=== PATIENT | female | born 1960 | race African-American/Black ===

== ENCOUNTER 2016-04-28 20:20 | Emergency (ER) | payer OTHER ==
[~2016-04-28] VITALS: Ht 162.6 cm; Wt 113.4 kg
[2016-04-28 22:54] VITALS: BP 151/62
[2016-04-28 23:03] LABS: BASOPHILS % (AUTO) 1.3 % (0.0-2.0); EOSINOPHILS % (AUTO) 1.8 % (0.0-3.0); LYMPHOCYTES % (AUTO) 39.5 % (20.0-45.0); MEAN CORPUSCULAR HEMOGLOBIN 25.8 PG (27.0-31.0); MEAN CORPUSCULAR HGB CONC 31.5 G/DL (32.0-36.0); MEAN CORPUSCULAR VOLUME 82 FL (80-99); MEAN PLATELET VOLUME 7.1 FL (6.5-10.1); MONOCYTES % (AUTO) 6.4 % (1.0-10.0); NEUTROPHILS % (AUTO) 50.9 % (45.0-75.0); PLATELET COUNT 273 K/UL (150-450); RED CELL DISTRIBUTION WIDTH 13.7 % (11.6-14.8); WHITE BLOOD COUNT 4.6 K/UL (4.8-10.8)
[2016-04-28 23:10] VITALS: BP 136/57
[2016-04-28 23:17] LABS: ALANINE AMINOTRANSFERASE 8 U/L (3-33); ALBUMIN/GLOBULIN RATIO 1.1 (1.0-2.7); ANION GAP 12 (5-15); ASPARTATE AMINO TRANSFERASE 12 U/L (5-40); CALCIUM 10.1 mg/dL (8.6-10.2); CARBON DIOXIDE 27 mEQ/L (20-30); CHLORIDE 101 mEQ/L (98-107); HEMOLYSIS 7; POTASSIUM 4.4 mEQ/L (3.4-4.9); SODIUM 140 mEQ/L (135-145); TOTAL PROTEIN 6.8 g/dL (6.6-8.7)
[2016-04-28 23:30] LABS: GLOMERULAR FILTRATION RATE > 60 mL/min (>60)
[2016-04-29 00:11] LABS: APPEARANCE,URINE CLEAR; KETONES,URINE NEGATIVE (NEGATIVE); LEUKOCYTE ESTERASE ,URINE NEGATIVE (NEGATIVE); NITRITE,URINE NEGATIVE (NEGATIVE); PH,URINE 7 (4.5-8.0); PROTEIN,URINE NEGATIVE (NEGATIVE); UROBILINOGEN,URINE NORMAL MG/DL (0.0-1.0)
[2016-04-29] MEDS ORDERED: DIPHENHYDRAMINE25 M1 ORAL (00:14)
[2016-04-29] MEDS ORDERED: AMLODIPINE BESY10 MG ORAL (00:14)
[2016-04-29] MEDS ORDERED: ZOFRAN4 M3 ORAL (00:14)
[2016-04-29] MEDS ORDERED: ALBUTEROL2.5 MG/3 M INH (00:14)
[2016-04-29] MEDS ORDERED: RANITIDINE HCL150 MG ORAL (00:14)
[2016-04-29] MEDS ORDERED: CLINDAMYCIN HC150 MG TOPIC (00:14)
[2016-04-29] MEDS ORDERED: KETOTIFEN FUMARA5 ML OP (00:14)
[2016-04-29] MEDS ORDERED: LUBRICANT EYE D10 ML OP (00:14)
[2016-04-29] MEDS ORDERED: CHLORTHALIDONE25 MG ORAL (00:14)
[2016-04-29] MEDS ORDERED: METHOCARBAMOL750 MG ORAL (00:14)
[2016-04-29] MEDS ORDERED: IBUPROFEN600 MG ORAL (00:14)
[2016-04-29] MEDS ORDERED: LISINOPRIL40 MG ORAL (00:14)
[2016-04-29] MEDS ORDERED: SPIRONOLACTONE1 EACH ORAL (00:14)
[2016-04-29] MEDS ORDERED: FLUOXETINE HCL10 MG ORAL (00:14)
[2016-04-29 01:07] VITALS: BP 144/44
[2016-04-29 02:56] VITALS: BP 130/49
--- NOTE | 2016-04-29 03:31 | Emergency Room Report ---
History of Present Illness General Chief Complaint: Dizziness Source: Patient Present Illness HPI Patient presents with complaints of significant dizziness lightheadedness Patient reports in December she was seen by her primary placed on meclizine Today she had increased symptoms of dizziness especially with standing or turning Presents to the ER Denies any other change in medication denies any fevers or chills She's had a partial thyroid removal When she was 17 Denies any other vomiting or diarrhea denies any fevers or chills Patient also had a mild headache Allergies: Coded Allergies: ERYTHROMYCIN BASE (Verified Allergy, Unknown, 04/28/16) INFLUENZA VIRUS VACCINES (Verified Allergy, Unknown, 04/28/16) PENICILLINS (Verified Allergy, Unknown, 04/28/16) Patient History Past Medical History: see triage record Pertinent Family History: none : 2 Para: 1 Reviewed Nursing Documentation: PMH: Agreed, PSxH: Agreed Nursing Documentation-PMH Hx Hypertension: Yes Hx Asthma: Yes Review of Systems All Other Systems: negative except mentioned in HPI Physical Exam Vital Signs Date Time Temp Pulse Resp B/P Pulse Ox O2 Delivery O2 Flow Rate FiO2 04/28/16 21:07 98.1 48 16 138/78 99 Room Air Sp02 EP Interpretation: reviewed, normal General Appearance: well appearing, no apparent distress Head: normocephalic, atraumatic Eyes: bilateral eye EOMI, bilateral eye PERRL ENT: hearing grossly normal, normal pharynx, TMs + canals normal, uvula midline Neck: full range of motion, supple, no meningismus, no bony tend Respiratory: lungs clear, normal breath sounds, no rhonchi, no respiratory distress, no retraction, no accessory muscle use Cardiovascular #1: normal peripheral pulses, no edema, no gallop, no JVD, no murmur, bradycardia Gastrointestinal: normal bowel sounds, non tender, soft, no mass, no organomegaly, non-distended, no guarding, no hernia, no pulsatile mass, no rebound Genitourinary: no CVA tenderness Musculoskeletal: normal inspection Neurologic: oriented x3, responsive, 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, motor strength/ tone normal, sensory intact Psychiatric: mood/affect normal Skin: normal color, no rash, warm/dry, palpation normal Lymphatic: normal inspection, no adenopathy Medical Decision Making Diagnostic Impression: Primary Impression: Symptomatic bradycardia ER Course Patient is a fairly complex patient with multiple differential to consideration including but not limited to cardiac cardiopulmonary and vascular emergencies Patient's found to be significantly bradycardic Had a heart rate in the 40s This is concerning given the patient's symptomatic presentation Patient is on antihypertensive medications does not appear to be on any beta blockers Patient secondary to insurance purposes is being set for transfer And requires further inpatient care Labs Test 04/28/16 22:50 04/28/16 23:40 White Blood Count 4.6 K/UL (4.8-10.8) Red Blood Count 5.30 M/UL (4.20-5.40) Hemoglobin 13.7 G/DL (12.0-16.0) Hematocrit 43.4 % (37.0-47.0) Mean Corpuscular Volume 82 FL (80-99) Mean Corpuscular Hemoglobin 25.8 PG (27.0-31.0) Mean Corpuscular Hemoglobin Concent 31.5 G/DL (32.0-36.0) Red Cell Distribution Width 13.7 % (11.6-14.8) Platelet Count 273 K/UL (150-450) Mean Platelet Volume 7.1 FL (6.5-10.1) Neutrophils (%) (Auto) 50.9 % (45.0-75.0) Lymphocytes (%) (Auto) 39.5 % (20.0-45.0) Monocytes (%) (Auto) 6.4 % (1.0-10.0) Eosinophils (%) (Auto) 1.8 % (0.0-3.0) Basophils (%) (Auto) 1.3 % (0.0-2.0) Sodium Level 140 mEQ/L (135-145) Potassium Level 4.4 mEQ/L (3.4-4.9) Chloride Level 101 mEQ/L (98-107) Carbon Dioxide Level 27 mEQ/L (20-30) Anion Gap 12 (5-15) Blood Urea Nitrogen 17 mg/dL (7-23) Creatinine 1.0 mg/dL (0.5-0.9) Estimat Glomerular Filtration Rate > 60 mL/min (>60) Glucose Level 100 mg/dL (74-106) Calcium Level 10.1 mg/dL (8.6-10.2) Total Bilirubin 0.4 mg/dL (0.0-1.2) Aspartate Amino Transf (AST/SGOT) 12 U/L (5-40) Alanine Aminotransferase (ALT/SGPT) 8 U/L (3-33) Alkaline Phosphatase 84 U/L (35-104) Total Protein 6.8 g/dL (6.6-8.7) Albumin 3.7 g/dL (3.5-5.2) Globulin 3.1 g/dL Albumin/Globulin Ratio 1.1 (1.0-2.7) Urine Color Pale yellow Urine Appearance Clear Urine pH 7 (4.5-8.0) Urine Specific Clemons 1.010 (1.005-1.035) Urine Protein Negative (NEGATIVE) Urine Glucose (UA) Negative (NEGATIVE) Urine Ketones Negative (NEGATIVE) Urine Occult Blood Negative (NEGATIVE) Urine Nitrite Negative (NEGATIVE) Urine Bilirubin Negative (NEGATIVE) Urine Urobilinogen Normal MG/DL (0.0-1.0) Urine Leukocyte Esterase Negative (NEGATIVE) EKG Diagnostic Results Rate: bradycardiac Rhythm: NSR ST Segments: no acute changes Rhythm Strip Diag. Results EP Interpretation: yes Rate: 45 Rhythm: no PVC's, no ectopy, other - Sinus bradycardia Chest X-Ray Diagnostic Results EP Interpretation: Yes Findings: no consolidation, no effusion, no pneumothorax Number of Views: 1 CT/MRI/US Diagnostic Results CT/MRI/US Diagnostic Results : Impression CT head no acute disease Last Vital Signs Date Time Temp Pulse Resp B/P Pulse Ox O2 Delivery O2 Flow Rate FiO2 04/29/16 02:56 53 12 130/49 100 Room Air 04/29/16 01:07 98.2 Status: improved Dis[facility]: [facility] Condition: Serious Referrals: [facility],REFERRING (PCP) LAUREN HUMPHRIES D.O. Apr 29, 2016 03:31
[2016-04-29 03:53] VITALS: BP 130/49
--- NOTE | 2016-04-29 10:07 | Diagnostic Imaging Report ---
Indication: Dizziness Technique: Contiguous 5 mm thick transaxial imaging of the head obtained in a Siemens Sensation [address] scanner. Soft tissue and bone windows generated. Total Dose length Product (DLP): [address] Dose Index Volume (CTDIvol): 70.38 mGy Comparison: none Findings: The size and configuration of the cortical sulci, basal cisterns, and ventricles are within normal limits for age. There is no mass effect, midline shift, or edema identified. There is no evidence of acute hemorrhage or abnormal intra-axial or extra-axial fluid collections. The bones and soft tissues are unremarkable. Impression: No mass effect, edema or acute bleed. [facility] has communicated the preliminary results to the Emergency Department. Their findings are largely concordant with this report. The CT scanner at [facility] is accredited by the [employer] and the scans are performed using protocols designed to limit radiation exposure to as low as reasonably achievable to attain images of sufficient resolution adequate for diagnostic evaluation.
--- NOTE | 2016-05-18 14:17 | Cardiology Report ---
APPROVED REPORT EKG Measurement Heart [id number] Sinus bradycardia Cannot rule out Anterior infarct, age undetermined Abnormal ECG
== END 2016-04-29 03:58 | disposition short-term general hospital (02) ==
LOC: EMR 22:30
DX: R00.1 Bradycardia, unspecified (principal); R42 Dizziness and giddiness; Z88.0 Allergy status to penicillin; Z88.7 Allergy status to serum and vaccine; I10 Essential (primary) hypertension; J45.909 Unspecified asthma, uncomplicated
CPT/HCPCS: 36415; 70450; 80053; 81003; 85025; 93005